=== PATIENT | female | born 1985 | race Caucasian/White ===

== ENCOUNTER → 2019-01-16 14:07 | Outpatient (CLI) | payer OTHER ==
[~2019-01-16 14:07] MED LIST: CATAFLAM50 MG PO
== END | disposition home or self-care (01) ==
LOC: LAB 14:07
DX: J11.1 Influenza due to unidentified influenza virus with other respiratory manifestations (principal); J11.89 Influenza due to unidentified influenza virus with other manifestations

== ENCOUNTER 2019-01-31 07:50 | Outpatient (CLI) | payer OTHER | END 2019-01-31 07:57 | disposition home or self-care (01) | LOC: RAD 07:50 | DX: M54.2 Cervicalgia (principal) ==

== ENCOUNTER → 2019-03-27 | Outpatient (CLI) | payer OTHER | END | disposition home or self-care (01) | LOC: RX STUDY 08:59 | DX: R13.19 Other dysphagia (principal) ==

== ENCOUNTER 2019-04-16 08:35 | Outpatient (CLI) | payer OTHER | END 2019-04-16 08:37 | disposition home or self-care (01) | LOC: MAMO-SONO 08:35 | DX: Z12.31 Encounter for screening mammogram for malignant neoplasm of breast (principal); N63.10 Unspecified lump in the right breast, unspecified quadrant; N63.20 Unspecified lump in the left breast, unspecified quadrant; N92.1 Excessive and frequent menstruation with irregular cycle ==

== ENCOUNTER → 2019-04-16 10:39 | Outpatient (CLI) | payer OTHER | END | disposition home or self-care (01) | LOC: LAB 07:36 | DX: D50.8 Other iron deficiency anemias (principal); E83.51 Hypocalcemia; N39.0 Urinary tract infection, site not specified; E03.8 Other specified hypothyroidism; E78.00 Pure hypercholesterolemia, unspecified ==

== ENCOUNTER 2019-10-15 11:30 | Outpatient (CLI) | payer OTHER | END 2019-10-15 11:39 | disposition home or self-care (01) | LOC: LAB 11:30 | DX: J11.1 Influenza due to unidentified influenza virus with other respiratory manifestations (principal) ==

== ENCOUNTER → 2020-08-02 08:43 | Outpatient (CLI) | payer OTHER | END | disposition home or self-care (01) | LOC: LAB 08:43 | DX: Z03.818 Encounter for observation for suspected exposure to other biological agents ruled out (principal) ==

== ENCOUNTER 2020-08-05 10:47 | Emergency (ER) | payer OTHER ==
[~2020-08-05] VITALS: Ht 157.5 cm; Wt 70.3 kg
== END 2020-08-05 13:44 | disposition home or self-care (01) ==
LOC: ER 10:47
DX: T88.1XXA Other complications following immunization, not elsewhere classified, initial encounter (principal); Z20.828 Contact with and (suspected) exposure to other viral communicable diseases

== ENCOUNTER 2021-02-24 11:46 | Emergency (ER) | payer OTHER ==
[~2021-02-24] VITALS: Ht 157.5 cm; Wt 70.3 kg
[2021-02-24] MEDS ORDERED: ZANAFLEX4 M1 PO (14:35)
[2021-02-24] MEDS ORDERED: KETO10TA2 PO (14:35)
== END 2021-02-24 14:49 | disposition home or self-care (01) ==
LOC: ER 11:46
DX: M54.2 Cervicalgia (principal)

== ENCOUNTER → 2021-03-10 | Outpatient (CLI) | payer OTHER ==
[~2021-03-10] MED LIST changes: +KETO10TA2 PO; +ZANAFLEX4 M1 PO
== END | disposition home or self-care (01) ==
LOC: LAB 11:53
PROVIDERS: ATTEND Emergency Medicine Pediatric Emergency Medicine
DX: Z20.828 Contact with and (suspected) exposure to other viral communicable diseases (principal)

== ENCOUNTER 2021-06-13 08:00 | Outpatient (CLI) | payer OTHER | END 2021-06-13 08:30 | disposition home or self-care (01) | LOC: PPH VACUNA 08:00 | PROVIDERS: ATTEND Emergency Medicine Pediatric Emergency Medicine | DX: Z23 Encounter for immunization (principal) ==

== ENCOUNTER 2021-07-04 08:00 | Outpatient (CLI) | payer OTHER | END 2021-07-04 08:30 | disposition home or self-care (01) | LOC: PPH VACUNA 08:00 | PROVIDERS: ATTEND Emergency Medicine Pediatric Emergency Medicine | DX: Z23 Encounter for immunization (principal) ==

== ENCOUNTER → 2021-10-12 08:00 | Outpatient (CLI) | payer OTHER | END | disposition home or self-care (01) | LOC: LAB 08:00 | PROVIDERS: ATTEND General Practice | DX: E78.5 Hyperlipidemia, unspecified (principal); E55.9 Vitamin D deficiency, unspecified; N39.0 Urinary tract infection, site not specified; R42 Dizziness and giddiness; R10.2 Pelvic and perineal pain; J15.7 Pneumonia due to Mycoplasma pneumoniae ==

== ENCOUNTER → 2021-10-14 | Outpatient (CLI) | payer OTHER | END | disposition home or self-care (01) | LOC: SONOGRAMA 15:29 | PROVIDERS: ATTEND General Practice | DX: R10.2 Pelvic and perineal pain (principal) ==

== ENCOUNTER 2021-10-18 11:19 | Outpatient (CLI) | payer OTHER | END 2021-10-18 11:23 | disposition home or self-care (01) | LOC: RAD 11:19 | PROVIDERS: ATTEND General Practice | DX: R05.9 Cough, unspecified (principal) ==

== ENCOUNTER 2022-01-05 11:24 | Outpatient (CLI) | payer OTHER | END 2022-01-05 11:29 | disposition home or self-care (01) | LOC: LAB 11:24 | PROVIDERS: ATTEND Anesthesiology | DX: A49.3 Mycoplasma infection, unspecified site (principal); Z20.822 Contact with and (suspected) exposure to COVID-19 ==

== ENCOUNTER 2022-04-18 08:00 | Outpatient (CLI) | payer OTHER | END 2022-04-18 08:05 | disposition home or self-care (01) | LOC: PPH VACUNA 08:00 | PROVIDERS: ATTEND Emergency Medicine Pediatric Emergency Medicine | DX: Z23 Encounter for immunization (principal) ==

== ENCOUNTER 2022-06-01 08:40 | Outpatient (CLI) | payer OTHER | END 2022-06-01 08:44 | disposition home or self-care (01) | LOC: MAMO-SONO 08:40 | PROVIDERS: ATTEND Surgery | DX: Z12.31 Encounter for screening mammogram for malignant neoplasm of breast (principal) ==

== ENCOUNTER 2022-12-18 14:33 | Outpatient (CLI) | payer OTHER | END 2022-12-18 14:37 | disposition home or self-care (01) | LOC: SONOGRAMA 14:33 | PROVIDERS: ATTEND Obstetrics & Gynecology Gynecology | DX: D24.1 Benign neoplasm of right breast (principal); N92.1 Excessive and frequent menstruation with irregular cycle ==

== ENCOUNTER 2022-12-18 14:34 | Outpatient (CLI) | payer OTHER | END 2022-12-18 14:35 | disposition home or self-care (01) | LOC: LAB 14:34 | PROVIDERS: ATTEND Obstetrics & Gynecology Gynecology | DX: N39.0 Urinary tract infection, site not specified (principal); D64.9 Anemia, unspecified; E03.9 Hypothyroidism, unspecified ==

== ENCOUNTER 2023-01-01 15:49 | Outpatient (CLI) | payer OTHER | END 2023-01-01 16:02 | disposition home or self-care (01) | LOC: LAB 15:49 | DX: Z20.822 Contact with and (suspected) exposure to COVID-19 (principal) ==

== ENCOUNTER 2023-01-09 07:58 | Outpatient (CLI) | payer OTHER | END 2023-01-09 08:01 | disposition home or self-care (01) | LOC: LAB 07:58 | PROVIDERS: ATTEND Obstetrics & Gynecology Gynecology | DX: Z01.812 Encounter for preprocedural laboratory examination (principal) ==

== ENCOUNTER 2023-01-15 05:30 | Day surgery (SDC) | payer OTHER ==
[~2023-01-15] VITALS: Ht 157.5 cm; Wt 72.6 kg
[2023-01-15] MEDS ORDERED: IBU800 MG PO (08:49)
== END 2023-01-15 10:30 | disposition home or self-care (01) ==
LOC: CIR.AMB 05:30
PROVIDERS: ATTEND Obstetrics & Gynecology Gynecology
DX: Z30.2 Encounter for sterilization (principal); Z64.1 Problems related to multiparity; I10 Essential (primary) hypertension; Z20.822 Contact with and (suspected) exposure to COVID-19